=== PATIENT | female | born 1995 | race African-American/Black ===

== ENCOUNTER 2017-09-09 18:48 | Emergency (ER) | payer BC, OTHER ==
[~2017-09-09] VITALS: Ht 157.5 cm; Wt 63.5 kg
[2017-09-09] MEDS ORDERED: AMOXICILLIN 50500 MG PO (19:42)
[2017-09-09] MEDS ORDERED: NAPROSYN500 MG PO (19:42)
== END 2017-09-09 19:54 | disposition home or self-care (01) ==
LOC: ER 18:48
DX: K11.5 Sialolithiasis (principal)